=== PATIENT | female | born 1960 | race Caucasian/White ===

== ENCOUNTER 2021-11-15 08:07 | Day surgery (SDC) | payer OTHER ==
[2021-11-10 12:05] VITALS: BMI 31.6
[2021-11-15] MEDS ORDERED: BUPIVACAINE HCL/EPINEPHRINE/PF 30 ML VIAL IJ ONE (08:37)
[2021-11-15] MEDS ORDERED: MIDAZOLAM HCL 2 MG/2 ML SINGLE DOSE VIAL ONE (09:44)
[2021-11-15] MEDS ORDERED: DEXAMETHASONE SOD PHOSPHATE 10 MG/1 ML VIAL ONE (09:44)
[2021-11-15] MEDS ORDERED: ROPIVACAINE HCL/PF 100 MG/20 ML VIAL ONE (09:45)
[2021-11-15] MEDS ORDERED: PROPOFOL 60 ML ONE (09:59)
[2021-11-15] MEDS ORDERED: ONDANSETRON 4 MG/2 ML VIAL ONE (10:17)
[2021-11-15] MEDS ORDERED: ceFAZolin SODIUM 1 GM VIAL ONE (10:17)
[2021-11-15] MEDS ORDERED: KETOROLAC TROMETHAMINE 30 MG/1 ML VIAL ONE (10:17)
[2021-11-15] MEDS ORDERED: DEXAMETHASONE SOD PHOSPHATE 4 MG/1 ML VIAL ONE (10:17)
[2021-11-15] MEDS ORDERED: PROPOFOL 20 ML ONE (11:57)
[2021-11-15] MEDS ORDERED: oxyCODONE HCL 5 MG TABLET PO PRN ×2 (12:28)
[2021-11-15] MEDS ORDERED: ONDANSETRON 4 MG/2 ML VIAL IVPUSH PRN (12:28)
[2021-11-15 13:32] VITALS: TEMP 97.2
[2021-11-15 13:36] VITALS: RESP 18
[2021-11-15 14:20] VITALS: BP 130/70; PULSE 79
== END 2021-11-15 14:00 | disposition home or self-care (01) ==
LOC: FASU 08:07
PROVIDERS: ATTEND Orthopaedic Surgery
PROC: 0LS40ZZ Reposition Left Upper Arm Tendon, Open Approach (ICD-10-PCS; 2021-11-15)
PROC: 0LQ24ZZ Repair Left Shoulder Tendon, Percutaneous Endoscopic Approach (ICD-10-PCS; principal; 2021-11-15 10:36)
PROC: 0RNK4ZZ Release Left Shoulder Joint, Percutaneous Endoscopic Approach (ICD-10-PCS; 2021-11-15 10:36)
DX: M75.102 Unspecified rotator cuff tear or rupture of left shoulder, not specified as traumatic (principal); M75.22 Bicipital tendinitis, left shoulder; M65.822 Other synovitis and tenosynovitis, left upper arm
CPT/HCPCS: 88304-TC; 94760; J1100